=== PATIENT | female | born 1975 | race Caucasian/White ===

== ENCOUNTER 2025-05-04 07:59 | Emergency (ER) | payer OTHER ==
[~2025-05-04] VITALS: Ht 162.6 cm; Wt 50.0 kg
[2025-05-04 08:09] VITALS: O2SAT 99
[2025-05-04 08:11] VITALS: BP 116/49; PULSE 85; RESP 16; TEMP 37; O2SAT 99
[2025-05-04] MEDS ORDERED: OFLO5DRO4 RIGHT EAR (08:30)
== END 2025-05-04 08:41 | disposition home or self-care (01) ==
LOC: ER 07:59
DX: H60.391 Other infective otitis externa, right ear (principal); J06.9 Acute upper respiratory infection, unspecified; H92.03 Otalgia, bilateral; Z79.899 Other long term (current) drug therapy
CPT/HCPCS: 99283